=== PATIENT | female | born 1950 | race Caucasian/White ===

== ENCOUNTER → 2017-02-02 | Outpatient (CLI) | payer OTHER | LOC: M LAB 09:25 | PROVIDERS: ATTEND Family Medicine | DX: Z13.1 Encounter for screening for diabetes mellitus (principal); Z13.220 Encounter for screening for lipoid disorders ==

== ENCOUNTER → 2017-02-02 | Outpatient (REF) | LOC: M LAB 09:19 | PROVIDERS: ATTEND Nurse Practitioner Adult Health | DX: Z00.00 Encounter for general adult medical examination without abnormal findings (principal) ==

== ENCOUNTER → 2017-02-17 | Outpatient (CLI) | payer OTHER ==
--- NOTE | 2017-02-17 12:12 | REPMRS ---
Patient History The patient states she had a clinical breast exam in 01/22 Patient had first child at age 51. No known family history of cancer. Digital Woman Screen Mammo: February 17, 2017 - Exam #: [id number] Bilateral CC and MLO view(s) were taken. Technologist: Lorrie Holt, Technologist Prior study comparison: November 18, 2011, digital bilateral screening mammo performed at [facility]. November 18, 2011, digital bilateral screening mammo performed at [facility]. FINDINGS: The breast tissue is heterogeneously dense. This may lower the sensitivity of mammography. There has been no change in the appearance of the mammogram from the prior studies. There is a moderate amount of residual fibroglandular tissue which is fairly symmetric. There is no interval development of dominant mass, areas of architectural distortion, or clustered microcalcification typical of malignancy. ASSESSMENT: BI-RADS/ACR category 1 mammogram. Negative. Recommendation Routine screening mammogram in 1 year (for women over age 40). This mammogram was interpreted with the aid of an FDA-approved computer-aided dectection system. Electronically Signed By: Dg Davis MD 02/17/17 7816
== END ==
LOC: M WHC 10:05
PROVIDERS: ATTEND Family Medicine
DX: Z12.31 Encounter for screening mammogram for malignant neoplasm of breast (principal); M81.0 Age-related osteoporosis without current pathological fracture

== ENCOUNTER → 2017-06-04 | Outpatient (CLI) | payer OTHER ==
[~2017-06-04] VITALS: Ht 162.6 cm; Wt 60.8 kg
[~2017-06-04] MED LIST: LIDOCAINE 2% INJ 100 MG/5 ML SDV (FOR ANES.) As Ordered ONE; MULT1TAB10 PO; NS 1,000 ML IV ONE; PROPOFOL 500 MG/50 ML VIAL As Ordered ONE
--- NOTE | 2017-06-04 11:17 | ROOR ---
Patient Name: Radha Rodriguez Procedure Date: 06/04/2017 10:44 AM Date of : 1950 Age: 66 Room: [facility] Gender: Female Note Status: Finalized Procedure: Total Colonoscopy to Cecum + Cold Snare Polypectomy + Hemoclip Indications: Screening for colorectal malignant neoplasm Providers: Wilder Fuentes MD Referring MD: Alayna Montanez MD Requesting Provider: Medicines: Monitored Anesthesia Care Complications: No immediate complications. Procedure: Pre-Anesthesia Assessment: - The heart rate, respiratory rate, oxygen saturations, blood pressure, adequacy of pulmonary ventilation, and response to care were monitored throughout the procedure. The Colonoscope was introduced through the anus and advanced to the cecum, identified by appendiceal orifice and ileocecal valve. The colonoscopy was performed without difficulty. The patient tolerated the procedure well. The quality of the bowel preparation was excellent. Findings: The perianal and digital rectal examinations were normal. Non-bleeding internal hemorrhoids were found during retroflexion. The hemorrhoids were small and Grade I (internal hemorrhoids that do not prolapse). A small polyp was found at 25 cm proximal to the anus. The polyp was sessile. The polyp was removed with a cold snare. Resection and retrieval were complete. To prevent bleeding after the polypectomy, one hemostatic clip was successfully placed (MR conditional). There was no bleeding at the end of the procedure. The exam was otherwise without abnormality on direct and retroflexion views. Impression: - Non-bleeding internal hemorrhoids. - One small polyp at 25 cm proximal to the anus, removed with a cold snare. Resected and retrieved. Clip (MR conditional) was placed. - The examination was otherwise normal on direct and retroflexion views. - The exam was otherwise normal to the cecum. Recommendation: - Patient has a contact number available for emergencies. The signs and symptoms of potential delayed complications were discussed with the patient. Return to normal activities tomorrow. Written discharge instructions were provided to the patient. - High fiber diet. - Discharge patient to home. - Continue present medications. - Await pathology results. - Telephone GI clinic for pathology results in 1 week. - Repeat colonoscopy in 5 years for surveillance based on pathology results. - Return to referring physician. - The findings and recommendations were discussed with the patient's family. Wilder Fuentes MD Wilder Fuentes MD 06/04/2017 11:16:49 AM This report has been signed electronically. Number of Addenda: 0 Note Initiated On: 06/04/2017 10:44 AM Estimated Blood Loss: Estimated blood loss: none.
[2017-06-04 11:40] VITALS: BP 124/58
== END | disposition home or self-care (01) ==
LOC: M OPP 09:51
PROVIDERS: ATTEND Internal Medicine Gastroenterology
DX: Z12.11 Encounter for screening for malignant neoplasm of colon (principal); D12.5 Benign neoplasm of sigmoid colon; K64.0 First degree hemorrhoids; Z78.0 Asymptomatic menopausal state

== ENCOUNTER → 2019-03-17 | Outpatient (CLI) | payer MEDICARE ==
[~2019-03-17] MED LIST changes: -LIDOCAINE 2% INJ 100 MG/5 ML SDV (FOR ANES.) As Ordered ONE; -NS 1,000 ML IV ONE; -PROPOFOL 500 MG/50 ML VIAL As Ordered ONE
[2019-03-17 07:52] LABS: CHOLESTEROL RISK RATIO 2.808 (<5)
== END ==
LOC: M LAB 06:52
PROVIDERS: ATTEND Family Medicine
DX: Z13.220 Encounter for screening for lipoid disorders (principal); Z13.1 Encounter for screening for diabetes mellitus

== ENCOUNTER → 2019-04-06 | Outpatient (CLI) | payer MEDICARE ==
--- NOTE | 2019-04-06 09:47 | REPMRS ---
Patient History The patient states she has not had a clinical breast exam in over a year. Patient is postmenopausal and is nulliparous. No known family history of cancer. No Hormone Replacement Therapy 3D TOMOSYNTHESIS WAS PERFORMED. Digital Woman Screen Mammo: April 06, 2019 - Exam #: [id number] Bilateral CC and MLO view(s) were taken. Technologist: Alana Kolb, Technologist Prior study comparison: February 17, 2017, digital woman screen mammo performed at [facility]. November 18, 2011, digital bilateral screening mammo performed at [facility]. FINDINGS: The breast tissue is heterogeneously dense. This may lower the sensitivity of mammography. There has been no change in the appearance of the mammogram from the prior studies. There is a moderate amount of residual fibroglandular tissue which is fairly symmetric. There is no interval development of dominant mass, areas of architectural distortion, or clustered microcalcification typical of malignancy. Assessment: BI-RADS/ACR category 1 mammogram. Negative Mammogram. Recommendation Routine screening mammogram in 1 year (for women over age 40). This mammogram was interpreted with the aid of an FDA-approved computer-aided dectection system. Electronically Signed By: Dg Davis MD 04/06/19 0954
== END ==
LOC: M WHC 07:54
PROVIDERS: ATTEND Family Medicine
DX: Z12.31 Encounter for screening mammogram for malignant neoplasm of breast (principal)

== ENCOUNTER → 2019-09-11 | Outpatient (REF) | payer MEDICARE ==
[2019-09-11 15:39] LABS: BASO % 0.2 % (0.0-1.0); EOS % 0.2 % (0.0-3.0); HEMATOCRIT 35.6 % (36.0-47.0); HEMOGLOBIN 11.5 g/dl (12.0-15.5); LYMPH # 0.7 10^3/uL (1.5-5.0); LYMPH % 8.4 % (24.0-44.0); MEAN CORPUSCULAR HEMOGLOBIN 27.3 pg (27.0-33.0); MEAN CORPUSCULAR HGB CONC 32.3 g/dl (32.0-36.5); MEAN CORPUSCULAR VOLUME 84.6 fl (80.0-96.0); MONO # 1.4 10^3/uL (0.0-0.8); MONO % 16.3 % (0.0-5.0); NEUTROPHILS # 6.3 10^3/uL (1.5-8.5); NEUTROPHILS % 74.5 % (36.0-66.0); PLATELET COUNT, AUTOMATED 213 10^3/uL (150-450); RED BLOOD COUNT 4.21 10^6/uL (4.00-5.40); WHITE BLOOD COUNT 8.4 10^3/uL (4.0-10.0)
[2019-09-11 15:43] LABS: ALBUMIN 3.4 GM/DL (3.2-5.2); BILIRUBIN,TOTAL 0.5 MG/DL (0.2-1.0); C REACTIVE PROTEIN QUANTITATIV 9.02 MG/DL (0.00-0.30); CALCIUM LEVEL 8.3 MG/DL (8.8-10.2); GLOMERULAR FILTRATION RATE 58.4 (>39); POTASSIUM SERUM 3.5 MEQ/L (3.5-5.1); TOTAL PROTEIN 6.9 GM/DL (6.4-8.2)
[2019-09-11 16:15] LABS: ERYTHROCYTE SEDIMENTATION RATE 73 mm/hr (0-30)
== END ==
LOC: M SFHCPLAZ 13:59
PROVIDERS: ATTEND Family Medicine
DX: R50.9 Fever, unspecified (principal); M25.50 Pain in unspecified joint

== ENCOUNTER → 2019-09-21 | Outpatient (REF) | payer MEDICARE ==
[2019-09-21 12:06] LABS: BASO % 0.5 % (0.0-1.0); EOS % 0.5 % (0.0-3.0); HEMATOCRIT 31.6 % (36.0-47.0); HEMOGLOBIN 9.7 g/dl (12.0-15.5); LYMPH % 11.8 % (24.0-44.0); MEAN CORPUSCULAR HEMOGLOBIN 27.1 pg (27.0-33.0); MEAN CORPUSCULAR HGB CONC 30.7 g/dl (32.0-36.5); MEAN CORPUSCULAR VOLUME 88.3 fl (80.0-96.0); MONO # 0.9 10^3/uL (0.0-0.8); MONO % 10.4 % (0.0-5.0); NEUTROPHILS # 6.3 10^3/uL (1.5-8.5); NEUTROPHILS % 76.2 % (36.0-66.0); PLATELET COUNT, AUTOMATED 369 10^3/uL (150-450); RED BLOOD COUNT 3.58 10^6/uL (4.00-5.40); WHITE BLOOD COUNT 8.3 10^3/uL (4.0-10.0)
[2019-09-21 12:26] LABS: BILIRUBIN,TOTAL 0.4 MG/DL (0.2-1.0); C REACTIVE PROTEIN QUANTITATIV 0.68 MG/DL (0.00-0.30); CALCIUM LEVEL 8.5 MG/DL (8.8-10.2); CREATININE FOR GFR 1.01 MG/DL (0.55-1.30); GLOMERULAR FILTRATION RATE 57.7 (>39); POTASSIUM SERUM 4.6 MEQ/L (3.5-5.1); TOTAL PROTEIN 6.3 GM/DL (6.4-8.2)
[2019-09-21 12:51] LABS: ERYTHROCYTE SEDIMENTATION RATE 56 mm/hr (0-30)
[2019-09-21 16:03] LABS: HEMATOCRIT 31.6 % (36.0-47.0)
[2019-09-21 16:15] LABS: PERCENT SATURATION 11.4 % (13.2-45.0)
== END ==
LOC: M SFHCPLAZ 08:23
PROVIDERS: ATTEND Family Medicine
DX: R50.9 Fever, unspecified (principal); D64.9 Anemia, unspecified

== ENCOUNTER → 2019-10-25 | Outpatient (CLI) | payer MEDICARE ==
[2019-10-25 13:02] LABS: BASO # 0.1 10^3/uL (0.0-0.2); BASO % 0.9 % (0.0-1.0); EOS # 0.1 10^3/uL (0.0-0.5); EOS % 1.8 % (0.0-3.0); HEMATOCRIT 37.5 % (36.0-47.0); HEMOGLOBIN 11.6 g/dl (12.0-15.5); LYMPH # 1.8 10^3/uL (1.5-5.0); LYMPH % 27.4 % (24.0-44.0); MEAN CORPUSCULAR HEMOGLOBIN 26.6 pg (27.0-33.0); MEAN CORPUSCULAR HGB CONC 30.9 g/dl (32.0-36.5); MONO # 0.7 10^3/uL (0.0-0.8); MONO % 10.3 % (0.0-5.0); NEUTROPHILS # 3.8 10^3/uL (1.5-8.5); NEUTROPHILS % 59.3 % (36.0-66.0); PLATELET COUNT, AUTOMATED 258 10^3/uL (150-450); RED BLOOD COUNT 4.36 10^6/uL (4.00-5.40); WHITE BLOOD COUNT 6.5 10^3/uL (4.0-10.0)
== END ==
LOC: M PLALAB 11:13
PROVIDERS: ATTEND Family Medicine
DX: D64.9 Anemia, unspecified (principal)

== ENCOUNTER → 2021-03-24 | Outpatient (REF) | payer MEDICARE ==
[2021-03-24 10:43] LABS: ALBUMIN 3.9 GM/DL (3.2-5.2); ALT/SGPT 22 U/L (12-78); BILIRUBIN,TOTAL 0.5 MG/DL (0.2-1.0); BLOOD UREA NITROGEN 19 MG/DL (7-18); CARBON DIOXIDE LEVEL 30 MEQ/L (21-32); CHLORIDE LEVEL 106 MEQ/L (98-107); CHOLESTEROL LEVEL 221 MG/DL (<200); CHOLESTEROL RISK RATIO 2.833 (<5); CREATININE FOR GFR 0.81 MG/DL (0.55-1.30); GLOMERULAR FILTRATION RATE > 60.0 (>39); GLUCOSE, FASTING 80 MG/DL (70-100); HDL CHOLESTEROL 78 MG/DL (>40); LDL CHOLESTEROL 131 MG/DL (<100); NON-HDL-C 143 MG/DL; POTASSIUM SERUM 4.6 MEQ/L (3.5-5.1); SODIUM LEVEL 140 MEQ/L (136-145); TOTAL PROTEIN 6.7 GM/DL (6.4-8.2); TRIGLYCERIDES LEVEL 59 MG/DL (<150)
== END ==
LOC: M PLALAB 08:35
PROVIDERS: ATTEND Family Medicine
DX: Z13.220 Encounter for screening for lipoid disorders (principal); Z13.1 Encounter for screening for diabetes mellitus; Z79.899 Other long term (current) drug therapy

== ENCOUNTER → 2021-04-03 | Outpatient (CLI) | payer MEDICARE ==
--- NOTE | 2021-04-03 08:36 | REPMRS ---
Patient History The patient states she has not had a clinical breast exam in over a year. Patient is postmenopausal and is nulliparous. No known family history of cancer. No Hormone Replacement Therapy Patient states no breast complaints today. Patient has signed MRS History Sheet. Digital Woman Screen Mammo: April 03, 2021 - Exam #: [id number] Bilateral CC and MLO view(s) were taken. Technologist: Alana Kolb, Technologist Prior study comparison: April 06, 2019, bilateral digital woman screen mammo performed at [facility]. February 17, 2017, digital woman screen mammo performed at [facility]. November 18, 2011, digital bilateral screening mammo performed at [facility]. FINDINGS: The breast tissue is heterogeneously dense. This may lower the sensitivity of mammography. The Volpara volumetric breast density category is: C. There is a moderate amount of heterogeneously dense fibroglandular tissue which is fairly symmetric. There is no interval development of dominant mass, architectural distortion, or grouped microcalcification typical of malignancy. There has been no change in the appearance of the mammogram from the prior studies. 3-D tomosynthesis shows no additional findings. Assessment: BI-RADS/ACR category 1 mammogram. Negative Mammogram. Recommendation Routine screening mammogram of both breasts in 1 year (for women over age 40). This patient's [facility] Lifetime Breast Cancer RIsk is estimated at 6.0 %. This mammogram was interpreted with the aid of an FDA-approved computer-aided dectection system. Electronically Signed By: Avery Morales MD 04/03/21 0835
== END ==
LOC: M WHC 07:54
PROVIDERS: ATTEND Family Medicine
DX: Z12.31 Encounter for screening mammogram for malignant neoplasm of breast (principal)

== ENCOUNTER → 2023-01-04 | Outpatient (CLI) | payer MEDICARE ==
[~2023-01-04] MED LIST changes: +MULT1TAB83 PO
== END ==
LOC: M LABSMTC 07:50
PROVIDERS: ATTEND Anesthesiology
DX: Z01.812 Encounter for preprocedural laboratory examination (principal); Z20.822 Contact with and (suspected) exposure to COVID-19

== ENCOUNTER 2023-01-06 09:16 | Day surgery (SDC) | payer MEDICARE ==
[~2023-01-06] VITALS: Ht 162.6 cm; Wt 58.1 kg
[~2023-01-06 09:16] MED LIST changes: +NS 1,000 ML IV ONE
[2023-01-06] MEDS ORDERED: propofoL 200 MG/20 ML VIAL As Ordered ONE ×2 (10:31→10:44)
[2023-01-06] MEDS ORDERED: LIDOCAINE 2% 100MG/5ML SDV (FOR ANES.) As Ordered ONE (10:31)
[2023-01-06 11:12] VITALS: BP 124/71
== END 2023-01-06 11:18 | disposition home or self-care (01) ==
LOC: M OPP 09:16
PROVIDERS: ATTEND Internal Medicine Gastroenterology
DX: Z86.010 Personal history of colon polyps (principal); K64.0 First degree hemorrhoids

== ENCOUNTER → 2023-03-29 | Outpatient (CLI) | payer MEDICARE ==
[~2023-03-29] MED LIST changes: -NS 1,000 ML IV ONE
== END ==
LOC: M WHC 08:05
PROVIDERS: ATTEND Internal Medicine
DX: Z12.31 Encounter for screening mammogram for malignant neoplasm of breast (principal); Z13.820 Encounter for screening for osteoporosis; M85.88 Other specified disorders of bone density and structure, other site; M85.851 Other specified disorders of bone density and structure, right thigh; M85.852 Other specified disorders of bone density and structure, left thigh

== ENCOUNTER 2024-02-25 16:20 | Emergency (ER) | payer MEDICARE ==
[~2024-02-25] VITALS: Ht 162.6 cm; Wt 58.8 kg
[~2024-02-25 16:20] MED LIST changes: -ALEN70TA82 PO; -PRED20TA PO
[2024-02-25 16:21] VITALS: BP 142/72; TEMP 97.7; O2SAT 100
[2024-02-25] MEDS ORDERED: ALEN70TA82 PO (16:27)
[2024-02-25] MEDS ORDERED: PRED20TA PO (16:27)
[2024-02-25] MEDS: NS 1,000 ML IV ONE (18:30)
[2024-02-25 18:44] LABS: BASO % 0.3 % (0.0-1.0); HEMATOCRIT 35.5 % (36.0-47.0); HEMOGLOBIN 11.3 g/dl (12.0-15.5); LYMPH # 0.4 10^3/uL (1.5-5.0); LYMPH % 4.9 % (24.0-44.0); MEAN CORPUSCULAR HEMOGLOBIN 28.2 pg (27.0-33.0); MEAN CORPUSCULAR HGB CONC 31.8 g/dl (32.0-36.5); MEAN CORPUSCULAR VOLUME 88.5 fl (80.0-96.0); MONO # 0.1 10^3/uL (0.0-0.8); MONO % 1.8 % (2.0-8.0); NEUTROPHILS # 6.7 10^3/uL (1.5-8.5); NEUTROPHILS % 92.6 % (36.0-66.0); PLATELET COUNT, AUTOMATED 315 10^3/uL (150-450); RED BLOOD COUNT 4.01 10^6/uL (4.00-5.40); WHITE BLOOD COUNT 7.3 10^3/uL (4.0-10.0)
[2024-02-25 18:52] LABS: ERYTHROCYTE SEDIMENTATION RATE 55 mm/hr (0-30)
[2024-02-25 19:03] LABS: ALBUMIN 3.5 G/DL (3.2-5.2); ALKALINE PHOSPHATASE 75 U/L (46-116); ALT/SGPT 14 U/L (7.0-40); AST/SGOT 32 U/L (<34); BILIRUBIN,TOTAL 0.3 MG/DL (0.3-1.2); BLOOD UREA NITROGEN 18 MG/DL (9-23); CALCIUM LEVEL 9.3 MG/DL (8.3-10.6); CARBON DIOXIDE LEVEL 26 MMOL/L (20-31); CHLORIDE LEVEL 102 MMOL/L (98-107); CREATININE FOR GFR 0.69 MG/DL (0.55-1.30); GLOMERULAR FILTRATION RATE > 60.0 (>39); GLUCOSE, FASTING 119 MG/DL (74-106); MAGNESIUM LEVEL 2.2 MG/DL (1.8-2.4); POTASSIUM SERUM 4.3 MMOL/L (3.5-5.1); SODIUM LEVEL 138 MMOL/L (136-145); TOTAL PROTEIN 6.7 G/DL (5.7-8.2)
[2024-02-25] MEDS ORDERED: ISOVUE-370 76% 100ML VIAL As Ordered ONE (19:11)
== END 2024-02-25 20:53 | disposition home or self-care (01) ==
LOC: M ED 16:20
DX: R19.00 Intra-abdominal and pelvic swelling, mass and lump, unspecified site (principal); M48.061 Spinal stenosis, lumbar region without neurogenic claudication; Z79.899 Other long term (current) drug therapy; Z79.52 Long term (current) use of systemic steroids
CPT/HCPCS: 71275; 74177; 80053; 81001; 83735; 85025; 85652; 86140; 93970; 96360; 96361; 99284; Q9967

== ENCOUNTER → 2024-02-25 | Outpatient (REF) | payer MEDICARE ==
[~2024-02-25] MED LIST changes: +ALEN70TA82 PO; +PRED20TA PO
[2024-02-25 12:42] LABS: C REACTIVE PROTEIN QUANTITATIV 0.9 MG/DL (<1.0)
[2024-02-25 12:44] LABS: RHEUMATOID FACTOR QUANT 7.4 IU/ML (<14)
[2024-02-28 16:17] LABS: ANCA-ATYPICAL <1:20 titer (Neg:<1:20); ANTINUCLEAR ANTIBODIES DIRECT Negative (Negative); CYTOPLASMIC NEUTROP AB ANCA-C <1:20 titer (Neg:<1:20); PERINUCLEAR AB ANCA-P <1:20 titer (Neg:<1:20)
== END ==
LOC: M LAB REF 11:12
PROVIDERS: ATTEND Physician Assistant Medical
DX: M54.50 Low back pain, unspecified (principal); M79.606 Pain in leg, unspecified; R19.07 Generalized intra-abdominal and pelvic swelling, mass and lump; R97.1 Elevated cancer antigen 125 [CA 125]

== ENCOUNTER → 2024-02-29 | Outpatient (CLI) | payer MEDICARE ==
[~2024-02-29] MED LIST changes: +ALEN70TA82 PO; +PRED20TA PO; +PROHANCE 279.3MG/ML 15ML VIAL As Ordered ONE
== END ==
LOC: M RAD 14:03
PROVIDERS: ATTEND Physician Assistant Medical
DX: R93.5 Abnormal findings on diagnostic imaging of other abdominal regions, including retroperitoneum (principal)
CPT/HCPCS: 72197; 74183; A9576

== ENCOUNTER → 2024-03-22 | Outpatient (REF) | payer MEDICARE ==
[~2024-03-22] MED LIST changes: -PROHANCE 279.3MG/ML 15ML VIAL As Ordered ONE
== END ==
LOC: M LAB REF 16:14
PROVIDERS: ATTEND Internal Medicine
DX: I50.32 Chronic diastolic (congestive) heart failure (principal)

== ENCOUNTER → 2024-03-23 | Outpatient (CLI) | payer MEDICARE | LOC: M WHC 13:41 | PROVIDERS: ATTEND Internal Medicine | DX: M79.605 Pain in left leg (principal); M79.604 Pain in right leg ==

== ENCOUNTER → 2024-03-23 | Outpatient (CLI) | payer MEDICARE | LOC: M PLAIMG 14:50 | PROVIDERS: ATTEND Internal Medicine | DX: R06.00 Dyspnea, unspecified (principal) ==

== ENCOUNTER → 2024-04-05 | Outpatient (CLI) | payer MEDICARE | LOC: M PLAIMG 12:34 | PROVIDERS: ATTEND Internal Medicine | DX: R06.00 Dyspnea, unspecified (principal); R00.1 Bradycardia, unspecified ==

== ENCOUNTER → 2024-05-01 | Outpatient (CLI) | payer MEDICARE ==
[~2024-05-01] VITALS: Ht 162.6 cm; Wt 54.1 kg
[~2024-05-01] MED LIST changes: +LIDOCAINE 1% MDV 20ML VIAL As Ordered ONE; +LIDOCAINE W/EPINEPHRINE 1% 20ML VIAL As Ordered ONE; +MIDAZOLAM INJ 2MG/2ML VIAL As Ordered ONE; +MULT18TA PO; +NS 1,000 ML IV SCH; +ceFAZolin 2 GM/D5W 50 ML IV BAG As Ordered ONE; +ceFAZolin SOD 2 GM in IV 1 EA IV ONE; +fentaNYL 100 MCG/2 ML INJECTION As Ordered ONE
[2024-05-01 13:35] VITALS: TEMP 97.4
[2024-05-01 15:45] VITALS: BP 151/85; O2SAT 96
== END ==
LOC: M IRPRO 13:17
PROVIDERS: ATTEND Internal Medicine Hematology & Oncology
DX: C57.01 Malignant neoplasm of right fallopian tube (principal)
CPT/HCPCS: 36561; 99152; 99153; C1769; J0690; J2250

== ENCOUNTER → 2024-09-11 | Outpatient (CLI) | payer MEDICARE ==
[~2024-09-11] MED LIST changes: +COLA100C5 PO; -LIDOCAINE 1% MDV 20ML VIAL As Ordered ONE; -LIDOCAINE W/EPINEPHRINE 1% 20ML VIAL As Ordered ONE; -MIDAZOLAM INJ 2MG/2ML VIAL As Ordered ONE; -NS 1,000 ML IV SCH; +ONDA-84 PO; +PROC10TA5 PO; +PROHANCE 279.3MG/ML 5ML VIAL As Ordered ONE; -ceFAZolin 2 GM/D5W 50 ML IV BAG As Ordered ONE; -ceFAZolin SOD 2 GM in IV 1 EA IV ONE; -fentaNYL 100 MCG/2 ML INJECTION As Ordered ONE
== END ==
LOC: M RAD 12:37
PROVIDERS: ATTEND Dietitian, Registered
DX: C56.9 Malignant neoplasm of unspecified ovary (principal); Z90.79 Acquired absence of other genital organ(s)
CPT/HCPCS: 72197; A9576

== ENCOUNTER → 2024-09-20 | Outpatient (CLI) | payer MEDICARE ==
[~2024-09-20] MED LIST changes: +GASTROGRAFIN SOLUTION 30ML As Ordered ONE; +ISOVUE-370 76% 100ML VIAL As Ordered ONE; -PROHANCE 279.3MG/ML 5ML VIAL As Ordered ONE
== END ==
LOC: M RAD 13:32
PROVIDERS: ATTEND Internal Medicine Hematology & Oncology
DX: C56.9 Malignant neoplasm of unspecified ovary (principal)
CPT/HCPCS: 71260; 74177; Q9963; Q9967

== ENCOUNTER → 2025-06-21 | Outpatient (CLI) | payer MEDICARE ==
[~2025-06-21] MED LIST changes: +ACET-683 PO; -GASTROGRAFIN SOLUTION 30ML As Ordered ONE; +ISOVUE-370 76% 100 ML VIAL As Ordered ONE; -ISOVUE-370 76% 100ML VIAL As Ordered ONE; +NIRA200T PO
== END ==
LOC: M RAD 09:02
PROVIDERS: ATTEND Specialist
DX: C56.9 Malignant neoplasm of unspecified ovary (principal)
CPT/HCPCS: 71260; 74177; Q9967